=== PATIENT | female | born 1980 | race Caucasian/White ===

== ENCOUNTER 2020-09-11 13:31 | Emergency (ER) | payer OTHER ==
[2020-09-11 13:39] VITALS: BP 104/64; PULSE 110; RESP 20; TEMP 98.8
--- NOTE | 2020-09-11 14:16 | ED ---
General Adult HPI - General Chief complaint: Extremity Problem,Nontraumatic Stated complaint: Knee pain Time Seen by Provider: 09/11/20 13:35 Source: patient, RN notes reviewed, old records reviewed Mode of arrival: ambulatory Limitations: no limitations - History of Present Illness Initial comments: This is a 39-year-old female comes in complaining of left knee pain. Patient states the last 3 weeks the pain started and over the last 3 weeks she's noticed that the swelling is progressively getting worse. Patient states she is able to ambulate and almost go through full range of motion with left knee but she wanted to get into a rehab facility today and they wanted her to have any checked out. Patient denies any fevers patient denies any redness around the knee. Patient does not recall any injury. Patient does state that she has almost full range of motion with some tightness on the superior aspect of the knee but no significant pain. - Related Data Allergies Allergy/AdvReac Type Severity Reaction Status Date / Time salicylates Allergy Unknown Verified 09/11/20 13:39 Review of Systems ROS Statement: Those systems with pertinent positive or pertinent negative responses have been documented in the HPI. ROS Other: All systems not noted in ROS Statement are negative. Past Medical History Past Medical History: No Reported History History of Any Multi-Drug Resistant Organisms: None Reported Past Surgical History: Appendectomy Past Psychological History: No Psychological Hx Reported Smoking Status: Current some day smoker Past Alcohol Use History: Daily Past Drug Use History: Heroin, Opiates General Exam - General Exam Comments Initial Comments: GENERAL Patient is well-developed and well-nourished. Patient is in mild distress. EYES Patient's pupils are equal and round. Extraocular motion is intact SKIN Unremarkable NEURO The patient is alert and oriented 3 PYSCH Patient has normal interpersonal interactions. MUSCULOSKELETAL Left knee effusion suprapatella. Patient has no ligamentous laxity Limitations: no limitations Course Vital Signs 09/11/20 13:34 Temperature 98.8 F Pulse Rate 110 H Respiratory 20 Rate Blood Pressure 104/64 O2 Sat by Pulse 100 Oximetry Medical Decision Making - Medical Decision Making Knee x-ray shows no acute abnormality. Patient does have a knee effusion. Patient has full range of motion is no redness is no warmth does not seem at all consistent with a infected joint. Disposition Clinical Impression: Knee effusion Disposition: HOME SELF-CARE Instructions (If sedation given, give patient instructions): Knee Sprain (ED) Is patient prescribed a controlled substance at d/c from ED?: No Referrals: None,Stated [Primary Care Provider] - 1-2 days Time of Disposition: 15:30
--- NOTE | 2020-09-11 15:11 | XR ---
EXAMINATION TYPE: XR knee complete LT DATE OF EXAM: 09/11/2020 CLINICAL HISTORY: pain TECHNIQUE: Three views of the left knee are obtained. COMPARISON: None. FINDINGS: There is no acute fracture/dislocation. The tri-compartment joint spaces appear within no rmal limits. The overlying soft tissue appears unremarkable. IMPRESSION: There is no acute fracture or dislocation ICD 10 NO FRACTURE, INITIAL EVALUATION
== END 2020-09-11 15:46 | disposition home or self-care (01) ==
LOC: EC 13:31
DX: M25.462 Effusion, left knee (principal); F17.200 Nicotine dependence, unspecified, uncomplicated; Z88.8 Allergy status to other drugs, medicaments and biological substances
CPT/HCPCS: 99284